=== PATIENT | male | born 1985 | race American Indian/Alaskan Native ===

== ENCOUNTER 2017-07-01 10:33 | Emergency (ER) | payer SELFPAY ==
[2017-07-01 10:53] VITALS: TEMP 97.9
[2017-07-01] MEDS ORDERED: Sodium Chloride 0.9% 1,000 ML IV ONE (10:54)
[2017-07-01] MEDS ORDERED: Sodium Chloride 0.9% 1,000 ML ONE (11:00)
[2017-07-01 11:14] LABS: BASO % 0.8 % (0.0-2.0); EOS # 0.2 K/uL (0.0-0.7); EOS % 3.7 % (0.0-4.0); HEMATOCRIT 44.8 % (35.0-51.0); LYMPH # 1.7 K/uL (1.0-4.3); LYMPH % 30.8 % (20.0-40.0); MEAN CELL VOLUME 90.9 fL (80.0-94.0); MEAN CORPUSCULAR HEMOGLOBIN 30.7 pg (27.0-31.0); MEAN CORPUSCULAR HGB CONC 33.7 g/dL (33.0-37.0); MEAN PLATELET VOLUME 7.3 fL (7.2-11.7); MONO # 0.6 K/uL (0.0-0.8); MONO % 10.4 % (0.0-10.0); NRBC % 0.1 % (0.0-2.0); RED CELL DISTRIBUTION WIDTH 13.2 % (11.5-14.5); WHITE BLOOD COUNT 5.7 K/uL (4.8-10.8)
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
[2017-07-01 11:33] LABS: CHLORIDE 101 mmol/L (98-107); POTASSIUM 3.8 mmol/L (3.6-5.2); SODIUM 141 mmol/L (132-148)
[2017-07-01 11:35] LABS: ALB/GLOB RATIO 1.3 (1.0-2.1); ALKALINE PHOSPHATASE 71 U/L (38-126); AST/SGOT 62 U/L (17-59); BILIRUBIN,TOTAL 0.8 mg/dL (0.2-1.3); CARBON DIOXIDE 26 mmol/L (22-30); GFR AFRICAN-AMERICAN > 60; TOTAL PROTEIN 7.5 g/dL (6.3-8.3)
[2017-07-01 11:36] LABS: ALT/SGPT 47 U/L (21-72); BLOOD UREA NITROGEN 13 mg/dL (9-20); CALCIUM 9.1 mg/dl (8.6-10.4); GLUCOSE,RANDOM 98 mg/dL (75-110)
[2017-07-01 12:43] VITALS: BP 108/60; PULSE 65; RESP 18
[2017-07-01 14:28] VITALS: O2SAT 98
== END 2017-07-01 12:48 | disposition home or self-care (01) ==
LOC: C.ER 10:33
DX: R11.0 Nausea (principal)
CPT/HCPCS: 80053; 83690; 85025; 96374; 99284; J2405; J7040